=== PATIENT | male | born 1985 ===

== ENCOUNTER 2024-12-12 04:58 | Emergency (ER) | payer OTHER ==
[~2024-12-12] VITALS: Ht 175.3 cm; Wt 141.0 kg
[2024-12-12] MEDS ORDERED: Ondansetron HCl 2 MG / ML 2ML Vial IV ONE (06:25)
[2024-12-12] MEDS ORDERED: Ketorolac Tromethamine 30mg Vial IV ONE (06:25)
[2024-12-12] MEDS ORDERED: NS 1,000 ML IV SCH (06:30)
[2024-12-12 06:37] LABS: BASOPHILS ABSOLUTE AUTO 0.03 K/mm3 (0.00-0.23); BASOPHILS PERCENT AUTO 0 % (0-2); EOSINOPHILS ABSOLUTE AUTO 0.13 K/mm3 (0.00-0.68); EOSINOPHILS PERCENT AUTO 1 % (0-6); Hematocrit 39.5 % (37.0-53.0); Hemoglobin 14.2 g/dL (13.5-17.5); IMMATURE GRAN ABSOLUTE AUTO 0.04 K/mm3 (0.00-0.10); IMMATURE GRAN PERCENT AUTO 0 % (0-1); LYMPHOCYTES ABSOLUTE AUTO 3.11 K/mm3 (0.84-5.20); LYMPHOCYTES PERCENT AUTO 32 % (21-46); MONOCYTES ABSOLUTE AUTO 0.85 K/mm3 (0.16-1.47); MONOCYTES PERCENT AUTO 9 % (4-13); Mean Corpuscular HGB 33.2 pg (26.0-34.0); Mean Corpuscular HGB Conc 35.9 g/dL (31.5-36.5); Mean Corpuscular Volume 92 fL (80-100); Mean Platelet Volume 10.7 fL (9.1-12.4); NEUTROPHILS ABSOLUTE AUTO 5.43 K/mm3 (1.96-9.15); NEUTROPHILS PERCENT AUTO 57 % (41-73); Platelet Count 270 K/mm3 (150-400); RDW Coefficient Variation 13.7 % (11.7-14.2); Red Blood Cell Count 4.28 M/mm3 (4.30-5.90); White Blood Cell Count 9.59 K/mm3 (4.00-11.30)
[2024-12-12 06:58] LABS: Albumin/Globulin Ratio 0.9 (0.8-1.8); Bilirubin, Direct 0.1 mg/dL (0.0-0.3); Bilirubin, Indirect 0.4 mg/dL (0.1-0.7); Bilirubin, Total 0.5 mg/dL (0.1-1.0); Bun/Creatinine Ratio 25.1 (12.0-20.0); Calcium, Blood 9.1 mg/dL (8.5-10.1); Creatinine, Blood 0.8 mg/dL (0.60-1.20); Globulin, Blood 4.5 g/dL (2.2-4.0); Potassium, Blood 4.2 mmol/L (3.5-5.5); Total Protein, Blood 8.5 g/dL (6.4-8.2)
[2024-12-12] MEDS ORDERED: DICY20 PO (08:44)
[2024-12-12] MEDS ORDERED: SULTRIDS PO (08:44)
[2024-12-12] MEDS ORDERED: ONDA4ODT MM (15:27)
== END 2024-12-12 09:21 | disposition home or self-care (01) ==
LOC: ER 04:58
PROVIDERS: Student in an Organized Health Care Education/Training Program
DX: R10.84 Generalized abdominal pain (principal); R11.0 Nausea; J34.0 Abscess, furuncle and carbuncle of nose; Z88.8 Allergy status to other drugs, medicaments and biological substances; Z87.891 Personal history of nicotine dependence
CPT/HCPCS: 74177; 80048; 80076; 83690; 85025; 93005; 93010; 96374-59; 96375; 99284-25; J1885; J2405; J7030; Q9967

== ENCOUNTER → 2024-12-22 | Outpatient (CLI) | payer OTHER ==
[~2024-12-22] MED LIST: DICY20 PO; ONDA4ODT MM; SULTRIDS PO
== END | disposition home or self-care (01) ==
LOC: LAB SHORT 17:15 → LAB 17:15
DX: L03.211 Cellulitis of face (principal)
CPT/HCPCS: 87070; 87075; 87205